=== PATIENT | male | born 1960 | race Two or more races ===

== ENCOUNTER 2023-07-24 17:20 | Inpatient (IN) | payer OTHER ==
[2023-07-24 20:07] VITALS: BMI 23.3
[2023-07-24] MEDS ORDERED: guaiFENesin 600 MG TABLET.ER (FP) PO PRN (22:06)
[2023-07-24] MEDS ORDERED: ACETAMINOPHEN 325 MG TABLET (FP) PO PRN (22:06)
[2023-07-24] MEDS ORDERED: BENZOCAINE/MENTHOL (CHLORASEPTIC ) LOZENGE MM PRN (22:06)
[2023-07-24] MEDS ORDERED: NALOXONE HCL 0.4 MG/ML VIAL IM PRN (22:06)
[2023-07-24] MEDS ORDERED: BISMUTH SUBSALICYLATE 524 MG/30 ML PO PRN (22:06)
[2023-07-24] MEDS ORDERED: IBUPROFEN 400 MG TABLET (FP) PO PRN (22:06)
[2023-07-24] MEDS ORDERED: MAGNESIUM HYDROX 2400MG/30ML ORAL SUSPENSION 30 ML CUP PO PRN (22:06)
[2023-07-24] MEDS ORDERED: POLYETHYLENE GLYCOL (HEALTHYLAX) 3350 17 GM PACKET PO PRN (22:06)
[2023-07-24] MEDS ORDERED: NICOTINE POLACRILEX 2 MG GUM BUC PRN (22:06)
[2023-07-24] MEDS ORDERED: IBUPROFEN 600 MG TABLET (FP) PO PRN (22:06)
[2023-07-24] MEDS ORDERED: BENZONATATE 200 MG CAPSULE PO PRN (22:06)
[2023-07-24] MEDS ORDERED: LOPERAMIDE HCL 2 MG CAPSULE PO PRN (22:06)
[2023-07-24] MEDS ORDERED: ONDANSETRON *ODT* 4 MG TABLET SL PRN (22:06)
[2023-07-24] MEDS ORDERED: hydrOXYzine PAMOATE 25 MG CAPSULE (FP) PO PRN (22:06)
[2023-07-24] MEDS ORDERED: NALOXONE HCL (KLOXXADO) 8 MG SPRAY NS PRN (22:06)
[2023-07-25] MEDS: PRENATAL VITAMINS W/ FOLIC ACID TABLET (FP) PO SCH (10:04)
[2023-07-25] MEDS: NICOTINE 21 MG/24 HOURS TOPICAL PATCH TD SCH (10:04)
[2023-07-25] MEDS ORDERED: diazePAM 5 MG TABLET PO PRN (11:24)
[2023-07-25] MEDS: METOPROLOL TARTRATE 25 MG TABLET (FP) PO SCH (12:53)
[2023-07-25 13:00] LABS: HEMATOCRIT 35.3 % (35.4-49); HEMOGLOBIN 11.8 GM/dL (11.7-16.9); MCH 31.5 pg (25.7-33.7); MCHC 33.3 g/dl (32.0-35.9); MEAN CELL VOLUME 94.5 fl (80-96); MEAN PLT VOLUME 8.6 fl (7.5-11.1); PLATELET COUNT 271 10^3/uL (134-434); RBC 3.74 M/mm3 (4.00-5.60); RDW 17.5 % (11.9-15.9); WHITE BLOOD COUNT 8.8 K/mm3 (4.0-10.0)
[2023-07-25 13:13] LABS: CHLORIDE 112 mmol/L (98-107); POTASSIUM 4.1 mmol/L (3.5-5.1); SODIUM 144 mmol/L (136-145)
[2023-07-25 13:40] LABS: GLUCOSE,RANDOM 86 mg/dL (74-106)
[2023-07-25 13:41] LABS: ALBUMIN 3.1 g/dl (3.4-5.0); ANION GAP 6 mmol/L (4-13); BLOOD UREA NITROGEN 11.6 mg/dL (7-18); CALCIUM 8.9 mg/dL (8.5-10.1); CO2 26 mmol/L (21-32)
[2023-07-25 13:43] LABS: CREATININE 0.7 mg/dL (0.55-1.3); SGOT/AST 23 U/L (15-37); SGPT/ALT 33 U/L (13-61)
[2023-07-25 13:45] LABS: BILIRUBIN,TOTAL 0.5 mg/dL (0.2-1); TOT PROT 6.5 g/dl (6.4-8.2)
[2023-07-25 13:46] LABS: ALK PHOS 93 U/L (45-117)
[2023-07-25] MEDS: diazePAM 5 MG TABLET PO SCH (17:58)
[2023-07-25] MEDS: traZODone HCL 50 MG TABLET (FP) PO SCH (21:19)
[2023-07-25] MEDS: MELATONIN 5 MG TABLETS PO SCH (21:20)
[2023-07-25] MEDS: risperiDONE 2 MG TABLET PO SCH (21:20)
[2023-07-25] MEDS: THIAMINE HCL 100 MG TABLET (FP) PO SCH (21:20)
[2023-07-26] MEDS: diazePAM 5 MG TABLET PO SCH (06:07)
[2023-07-27] MEDS: diazePAM 5 MG TABLET PO SCH (06:15)
[2023-07-27] MEDS: MAG HYDROX/AL HYDROX/SIMETH 30 ML UNIT-DOSE CUP PO PRN (23:16)
[2023-07-28] MEDS: diazePAM 5 MG TABLET PO ONE (05:24)
[2023-07-28 09:51] VITALS: BP 144/89; PULSE 108; RESP 20; TEMP 98.2
== END 2023-07-28 09:21 | disposition home or self-care (01) | DRG 775 ==
LOC: YASAS 17:20 → Y6N 23:25
PROVIDERS: ADMIT Allergy & Immunology; ATTEND Surgery
PROC: HZ2ZZZZ Detoxification Services for Substance Abuse Treatment (ICD-10-PCS; principal; 2023-07-24)
DX: F10.230 Alcohol dependence with withdrawal, uncomplicated (principal); F12.20 Cannabis dependence, uncomplicated; F17.210 Nicotine dependence, cigarettes, uncomplicated; F25.1 Schizoaffective disorder, depressive type; F10.24 Alcohol dependence with alcohol-induced mood disorder; F10.282 Alcohol dependence with alcohol-induced sleep disorder; F32.A Depression, unspecified; Z88.0 Allergy status to penicillin
CPT/HCPCS: 36415; 80053; 80305; 80307; 85027; 86780; 87635; 93005; 93010

== ENCOUNTER 2023-09-29 12:32 | Inpatient (IN) | payer OTHER ==
[2023-09-29] MEDS ORDERED: guaiFENesin 600 MG TABLET.ER (FP) PO PRN (14:45)
[2023-09-29] MEDS ORDERED: MAG HYDROX/AL HYDROX/SIMETH 30 ML UNIT-DOSE CUP PO PRN (14:45)
[2023-09-29] MEDS ORDERED: ONDANSETRON *ODT* 4 MG TABLET SL PRN (14:45)
[2023-09-29] MEDS ORDERED: BISMUTH SUBSALICYLATE 262 MG/15 ML BTL PO PRN (14:45)
[2023-09-29] MEDS ORDERED: IBUPROFEN 400 MG TABLET (FP) PO PRN (14:45)
[2023-09-29] MEDS ORDERED: MAGNESIUM HYDROX 2400MG/30ML ORAL SUSPENSION 30 ML CUP PO PRN (14:45)
[2023-09-29] MEDS ORDERED: BENZOCAINE/MENTHOL (CHLORASEPTIC ) LOZENGE MM PRN (14:45)
[2023-09-29] MEDS ORDERED: NALOXONE HCL 0.4 MG/ML VIAL IM PRN (14:45)
[2023-09-29] MEDS ORDERED: ACETAMINOPHEN 325 MG TABLET (FP) PO PRN (14:45)
[2023-09-29] MEDS ORDERED: LOPERAMIDE HCL 2 MG CAPSULE PO PRN (14:45)
[2023-09-29] MEDS ORDERED: DICYCLOMINE HCL 10 MG CAPSULE PO PRN (14:45)
[2023-09-29] MEDS ORDERED: hydrOXYzine PAMOATE 25 MG CAPSULE (FP) PO PRN (14:45)
[2023-09-29] MEDS ORDERED: BENZONATATE 200 MG CAPSULE PO PRN (14:45)
[2023-09-29] MEDS ORDERED: NALOXONE HCL (KLOXXADO) 8 MG SPRAY NS PRN (14:45)
[2023-09-29] MEDS ORDERED: POLYETHYLENE GLYCOL (HEALTHYLAX) 3350 17 GM PACKET PO PRN (14:45)
[2023-09-29] MEDS: THIAMINE 100 MG TABLET PO SCH (22:52)
[2023-09-29] MEDS: MELATONIN 5 MG TABLETS PO SCH (22:52)
[2023-09-30] MEDS: PRENATAL VITAMINS W/ FOLIC ACID TABLET (FP) PO SCH (10:28)
[2023-09-30 12:10] LABS: HEMATOCRIT 36.1 % (35.4-49); HEMOGLOBIN 11.7 GM/dL (11.7-16.9); MCH 30.3 pg (25.7-33.7); MCHC 32.5 g/dl (32.0-35.9); MEAN CELL VOLUME 93.3 fl (80-96); MEAN PLT VOLUME 8.7 fl (7.5-11.1); PLATELET COUNT 309 10^3/uL (134-434); RBC 3.87 M/mm3 (4.00-5.60); RDW 16.4 % (11.9-15.9); WHITE BLOOD COUNT 12.4 K/mm3 (4.0-10.0)
[2023-09-30 12:32] LABS: ALBUMIN 2.9 g/dl (3.4-5.0); BLOOD UREA NITROGEN 8.3 mg/dL (7-18); CALCIUM 8.7 mg/dL (8.5-10.1)
[2023-09-30 12:35] LABS: CREATININE 0.9 mg/dL (0.55-1.3)
[2023-09-30 12:37] LABS: BILIRUBIN,TOTAL 0.6 mg/dL (0.2-1); TOT PROT 6.5 g/dl (6.4-8.2)
[2023-09-30] MEDS: risperiDONE 2 MG TABLET PO SCH (21:53)
[2023-09-30] MEDS: METHOCARBAMOL 500 MG TABLET PO PRN (21:53)
[2023-09-30] MEDS: traZODone HCL 50 MG TABLET (FP) PO SCH (21:53)
[2023-10-01] MEDS: IBUPROFEN 600 MG TABLET (FP) PO PRN (04:15)
[2023-10-01 08:39] LABS: BASO % 0.5 % (0-2.0); HEMATOCRIT 32.7 % (35.4-49); HEMOGLOBIN 10.8 GM/dL (11.7-16.9); LYMPH % 13.4 % (8-40); MCH 30.5 pg (25.7-33.7); MEAN CELL VOLUME 92.4 fl (80-96); MEAN PLT VOLUME 8.6 fl (7.5-11.1); MONO % 9.2 % (3.8-10.2); NEUT % 74.9 % (42.8-82.8); PLATELET COUNT 304 10^3/uL (134-434); RBC 3.54 M/mm3 (4.00-5.60); RDW 15.8 % (11.9-15.9); WHITE BLOOD COUNT 12.6 K/mm3 (4.0-10.0)
[2023-10-01] MEDS: risperiDONE 1 MG TABLET PO SCH (10:41)
[2023-10-02] MEDS: cloNIDine HCL 0.1 MG TABLET PO PRN (22:11)
[2023-10-03 09:20] VITALS: BP 122/89; PULSE 94; RESP 18; TEMP 97.4
== END 2023-10-03 10:00 | disposition home or self-care (01) | DRG 775 ==
LOC: YASAS 12:32 → Y6N 16:58
PROVIDERS: ADMIT Allergy & Immunology; ATTEND Surgery
PROC: HZ2ZZZZ Detoxification Services for Substance Abuse Treatment (ICD-10-PCS; principal; 2023-09-29)
DX: F10.20 Alcohol dependence, uncomplicated (principal); F12.20 Cannabis dependence, uncomplicated; F17.210 Nicotine dependence, cigarettes, uncomplicated; F25.1 Schizoaffective disorder, depressive type; G47.00 Insomnia, unspecified; D72.829 Elevated white blood cell count, unspecified; Z56.0 Unemployment, unspecified; Z59.00 Homelessness unspecified; Z88.0 Allergy status to penicillin
CPT/HCPCS: 36415; 80053; 80305; 80307; 83036; 85025; 85027; 86780; 93005; 93010